=== PATIENT | male | born 1970 | race Caucasian/White ===

== ENCOUNTER 2022-08-11 17:42 | Outpatient (CLI) | payer OTHER, SELFPAY | END 2022-08-11 17:43 | disposition home or self-care (01) | LOC: LKVREF 17:44 | PROVIDERS: PCP Emergency Medicine; Visit Provider Emergency Medicine | DX: R04.0 Epistaxis (principal) | CPT/HCPCS: 85730 ==

== ENCOUNTER 2022-09-07 19:26 | Outpatient (CLI) | payer OTHER, SELFPAY ==
--- NOTE | 2022-09-15 12:45 | W.PM.SLEEP ---
Sleep Study Details Details Interpreting Provider: Deneen Date of Sleep Study: 09/07/22 Sleep Study Details: STUDY TYPE:? Home unattended ? BMI:? 26.3 ORDERING PROVIDER:Jose De Jesus Brothers INDICATION:? Concerns about sleep apnea ? SLEEP SUMMARY:? 411.5 minutes monitored RESPIRATORY SUMMARY:? AHI is 20.3, supine 31.3, left lateral 5.7, right lateral 1.1 Low oxygen 85 0.4% of study oxygen less than 90% Snoring 6.4% PERIODIC LIMB MOVEMENTS OF SLEEP:? Not recorded during home study CARDIAC:? Range 52-86, mean 59.8 IMPRESSION:? Moderate obstructive sleep apnea with significant supine position dependency RECOMMENDATION: Treatment options include CPAP AutoSet 4-17, positional therapy, dental appliance and/or airway expansion surgery.
== END 2022-09-07 19:27 | disposition home or self-care (01) ==
PROVIDERS: PCP Emergency Medicine; Visit Provider Otolaryngology
DX: G47.33 Obstructive sleep apnea (adult) (pediatric) (principal)
CPT/HCPCS: 95806

== ENCOUNTER 2022-09-28 07:56 | Outpatient (CLI) | payer OTHER, SELFPAY | END 2022-09-28 07:57 | disposition home or self-care (01) | LOC: NFLDREF 09-30 14:49 | PROVIDERS: PCP Emergency Medicine; Referring Provider Emergency Medicine; Visit Provider Emergency Medicine | DX: Z13.1 Encounter for screening for diabetes mellitus (principal); Z12.5 Encounter for screening for malignant neoplasm of prostate; Z13.6 Encounter for screening for cardiovascular disorders | CPT/HCPCS: 80048; 80061; 84153 ==

== ENCOUNTER 2022-10-23 12:54 | Outpatient (CLI) | payer OTHER, SELFPAY | END 2022-10-23 12:55 | disposition home or self-care (01) | LOC: NFLDREF 10-26 08:48 | PROVIDERS: PCP Emergency Medicine; Referring Provider Emergency Medicine; Visit Provider Emergency Medicine | DX: E83.52 Hypercalcemia (principal) | CPT/HCPCS: 80076; 82306; 82310; 83970; 84100 ==

== ENCOUNTER 2022-11-03 18:00 | Outpatient (CLI) | payer OTHER, SELFPAY | END 2022-11-03 18:01 | disposition home or self-care (01) | PROVIDERS: PCP Emergency Medicine; Visit Provider Emergency Medicine | DX: E21.3 Hyperparathyroidism, unspecified (principal) | CPT/HCPCS: 84443 ==

== ENCOUNTER 2022-11-19 15:11 | Outpatient (CLI) | payer OTHER, SELFPAY ==
--- NOTE | 2022-11-19 15:30 | CRLHL7_ITS ---
For Patients: As a result of the Century Cures Act, medical imaging exams and procedure reports are released immediately into your electronic medical record. You may view this report before your referring provider. If you have questions, please contact your health care provider. DXA BONE MINERAL DENSITY STUDY Current height (in): 70.0. Weight (lb): 190.0. Ethnicity: White. 1. Have you had a previous hip or vertebral fracture? No. 2. Have you had any fractures during your adult life which did not result from significant trauma (e.g., auto accident)? No. 3. Did either of your parents have a hip fracture? No. 4. Do you smoke? No. 5. Have you ever taken Glucocorticoids? No. 6. Do you have rheumatoid arthritis? No. 7. Do you have secondary osteoporosis? No. 8. Do you drink 3 or more alcoholic drinks per day? No. 9. Are you being treated for osteoporosis? No. 10. Have you ever taken any of the following medications: Actonel, Evista, Fosamax, Miacalcin, Reclast, Boniva, Forteo, HRT (i.e. estrogen/hormone therapy), Protelos, Prolia, Vitamin D, Calcium, other ??? please specify. ANSWER: No. 11. Do you have any of the following medical conditions: Anorexia or bulimia, asthma or emphysema, end stage renal disease, hyperparathyroidism, any seizure disorders, cancer, inflammatory bowel diseases, hysterectomy, other ??? please specify. ANSWER: Yes, hyperparathyroidism. 12. What was your maximum height (inches)? 70. 13. Do you perform weight bearing exercise regularly? No. 14. Do you regularly consume dairy products? Yes. 15. Do you drink caffeinated beverages? Yes. TECHNIQUE: Bone mineral density study was performed using the [employer]. FINDINGS: The results of the study expressed as bone mineral density (BMD) are as follows: Lumbar spine L1 to L4: BMD: 0.776 g/cm2. T-score: -2.9. Z-score: -2.5. Neck Left: BMD: 0.574 g/cm2. T-score: -2.6. Z-score: -1.9. Right: BMD: 0.569 g/cm2. T-score: -2.7. Z-score: -1.9. Total Left: BMD: 0.692 g/cm2. T-score: -2.3. Z-score: -1.9. Right: BMD: 0.621 g/cm2. T-score: -2.7. Z-score: -2.4. IMPRESSION: Osteoporosis. Arsenio Kaufman M.D. Diagnostic Radiologist [email or web address] MITZY/ramos / be/Dictated by: Arsenio Kaufman MD @ 11/20/2022 11:25:00 AM (Electronically Signed)
== END 2022-11-19 15:12 | disposition home or self-care (01) ==
LOC: RAD 15:12
PROVIDERS: PCP Emergency Medicine; Visit Provider Emergency Medicine
DX: E21.3 Hyperparathyroidism, unspecified (principal); M81.0 Age-related osteoporosis without current pathological fracture
CPT/HCPCS: 77080

== ENCOUNTER 2023-02-09 17:44 | Outpatient (CLI) | payer OTHER, SELFPAY | END 2023-02-09 17:45 | disposition home or self-care (01) | LOC: LKVREF 17:45 | PROVIDERS: PCP Emergency Medicine; Visit Provider Emergency Medicine | DX: Z01.818 Encounter for other preprocedural examination (principal) | CPT/HCPCS: 80048 ==

== ENCOUNTER 2023-05-11 17:45 | Outpatient (CLI) | payer OTHER, SELFPAY | END 2023-05-11 17:46 | disposition home or self-care (01) | PROVIDERS: PCP Emergency Medicine; Visit Provider Emergency Medicine | DX: R50.9 Fever, unspecified (principal); R53.83 Other fatigue | CPT/HCPCS: 80076; 84443; 86140; 87040 ==

== ENCOUNTER 2023-05-14 13:30 | Outpatient (CLI) | payer OTHER, SELFPAY | END 2023-05-14 13:31 | disposition home or self-care (01) | LOC: NFLDREF 05-19 12:11 | PROVIDERS: PCP Emergency Medicine; Referring Provider Emergency Medicine; Visit Provider Emergency Medicine | DX: R50.9 Fever, unspecified (principal); D64.9 Anemia, unspecified; D75.839 Thrombocytosis, unspecified | CPT/HCPCS: 82550; 82728; 85045; 86039; 86200; 86618; 86703; 87040; 87077; 87086; 87184 ==

== ENCOUNTER 2023-05-15 21:36 | Emergency (ER) | payer OTHER, SELFPAY ==
[2023-05-15 21:49] VITALS: BP 143/77; PULSE 75; RESP 16; TEMP 37.1; O2SAT 96; BMI 26.8
--- NOTE | 2023-05-15 22:00 | CT_ITS ---
Patient: JASPREET SUMNER Facility:?[facility] Patient ID:?[id number] Site Patient ID:?[id number]. Site :?[id number] Study:?CT-Chest/Abd/Pelvis with 92cc contrast-05/15/2023 10:55:51 PM Ordering Physician:Bettina Huston Final Report: Indication: Fever of unknown origin Technique: Postcontrast CT of the chest, abdomen, and pelvis with multiplanar reformats following 92 mL Isovue 370 IV. Comparison: Chest radiograph performed 05/11/2023 Findings: Chest: Lungs: No consolidation. No effusion. No pneumothorax. Mediastinum: No acute abnormality appreciated. Lymph nodes: No gross lymphadenopathy. Soft tissues: No acute abnormality appreciated. Bones: No acute abnormality appreciated. Abdomen and Pelvis: Hepatobiliary: No significant parenchymal abnormality is appreciated. Status post cholecystectomy. Spleen: Unremarkable. Pancreas: No acute abnormality appreciated. Adrenal glands: No acute abnormality appreciated. Kidneys: Indeterminate density right lower pole renal lesion measures 8 millimeters. No other significant parenchymal abnormality appreciated. No hydronephrosis. No calculi. Bowel: No obstruction. No focal perienteric or pericolonic stranding is appreciated. The appendix is visualized and appears unremarkable. Vascular: No acute abnormality appreciated. Lymph nodes: No gross lymphadenopathy. Peritoneum: No free air. No free fluid. : No acute abnormality appreciated. Soft tissues: No acute abnormality appreciated. Bones: No acute fracture. No lytic or blastic lesion. Impression: 1. No abnormal findings appreciated to account for patient`s reported symptoms. 2. Indeterminate density right renal lesion measuring 8 millimeters, no prior examination available for comparison. If no prior study is available for comparison, or if this is new or margin, a nonemergent outpatient renal protocol MRI or CT would be recommended for further evaluation. Please note that all CT scans at this facility use dose modulation, iterative reconstruction, and/or weight-based dosing when appropriate to reduce radiation dose to as low as reasonably achievable. Dictated by Moreno Hess MD @ 05/15/2023 11:23:27 PM Signed by:?Moreno Hess MD @05/15/2023 11:23:27 PM (Electronic Signature)
[2023-05-15 22:03] LABS: Basophils Absolute Auto 0.02 K/uL (0.00-0.30); Basophils Percent Auto 0.2 % (0.0-3.0); Eosinophils Absolute Auto 0.27 K/uL (0.00-0.50); Eosinophils Percent Auto 3.1 % (0.0-7.0); Hematocrit 38.1 % (37.0-53.0); Hemoglobin* 12.6 gm/dL (13.5-17.5); Immature Granulocytes Abs Auto 0.02 K/uL (0.00-0.30); Immature Granulocytes Pct Auto 0.2 %; Lymphocytes Percent Auto 22.7 % (20-44); Mean Corpuscular HGB Conc 33 gm/dL (32-36); Mean Corpuscular Hemoglobin 28 pg (26-34); Mean Corpuscular Volume 85 fL (80-100); Monocytes Percent Auto 7.9 % (0.0-11.0); Neutrophils Absolute Auto 5.82 K/uL (1.7-7.0); Neutrophils Percent Auto 65.9 % (42.0-72.0); Platelet Count* 529 K/uL (140-440); RDW Coefficient of Variation % 12.7 % (11.5-15.5); Red Blood Count 4.51 m/uL (4.30-5.90); White Blood Count* 8.83 K/uL (4.50-11.00)
[2023-05-15 22:04] LABS: Slide Review Reflex No
[2023-05-15 22:15] LABS: Chloride* 106 mmol/L (96-114); Potassium* 3.8 mmol/L (3.6-5.1); Sodium* 136 mmol/L (135-149)
[2023-05-15 22:17] LABS: Creatinine* 0.7 mg/dL (0.5-1.5); Est. Creatinine Clearance* 128.91; Estimated Glomerular Filt Rate 112 ml/min
[2023-05-15 22:18] LABS: Anion Gap 7 mEq/L (7-15); Carbon Dioxide* 23 mmol/L (20-32)
[2023-05-15 22:19] LABS: Blood Urea Nitrogen* 20 mg/dL (7-30); Calcium* 9.4 mg/dL (8.4-10.6); Glucose* 124 mg/dL (60-115)
[2023-05-15 22:21] LABS: C Reactive Protein* 1.4 mg/dL (0.5-1.0)
--- NOTE | 2023-05-15 22:51 | ED.GENADULT ---
HPI - General Adult General Chief complaint: Fever Stated complaint: fevers, night sweats Time Seen by Provider: 05/15/23 21:48 Source: patient Mode of arrival: ambulatory Limitations: no limitations History of Present Illness HPI narrative: 52-year-old male presenting to the ED for follow-up of positive blood cultures. Patient states that he has been having fevers and night sweats for approximately 3 weeks now. At the beginning of April he did go to [place] for a week and stated resort. Came back and felt fine. At the end of April he had a Reclast injection and ever since then he has been having nightly as night sweats and fevers during the day. Fevers get as high as 101 and do respond ibuprofen. He states that he has been feeling tired ever since a parathyroid surgery in January and this is unchanged. He states that he has lost approximately 7 lb since then. He states he did have a cough, however has been on doxycycline for approximately 5 days and the cough is better. Fevers, however, do continue. He denies worsening headaches, no chest pain or shortness of breath, no abdominal discomfort. He denies any difficulty with urination. No blood in his stool or urine. Denies any skin rashes. He has had extensive blood work done, nothing has been specific or pointing to a cause of his symptoms. He can do his activities of daily living, he eats throughout the day without vomiting or difficulty. He gets chills when the fever hits otherwise has no other acute concerning symptoms. Patient did have blood cultures drawn yesterday and 1 of the 2 cultures grew out Gram-negative rods. Related Data Home Medications Medication Instructions Recorded Confirmed sertraline 50 mg tablet 50 mg PO QDAY 11/03/22 02/09/23 cholecalciferol (vitamin D3) 50 50 mcg PO QDAY 05/11/23 05/11/23 mcg (2,000 unit) capsule Previous Rx's Medication Instructions Recorded albuterol sulfate 90 mcg/actuation 2 puff inhalation Q4H PRN 10/14/21 aerosol inhaler (Proventil HFA) shortness of breath or wheezing, cough #8.5 grams trazodone 50 mg tablet 50 - 100 mg (1 - 2 x 50 mg) PO QPM 05/07/23 PRN for insomnia #180 tabs doxycycline hyclate 100 mg capsule 100 mg PO BID 7 days #14 caps 05/13/23 Allergies Allergy/AdvReac Type Severity Reaction Status Date / Time No Known Drug Allergies Allergy Verified 05/11/23 17:29 Review of Systems Status of ROS: Reports: 10 or more systems reviewed and unremarkable except as noted in History and below [facility] Medical History Thrombocytosis ?D75.839 - Thrombocytosis, unspecified (ICD-10) Anemia ?D64.9 - Anemia, unspecified (ICD-10) Fever ?R50.9 - Fever, unspecified (ICD-10) Fatigue ?R53.83 - Other fatigue (ICD-10) Pre-op testing ?Z01.818 - Encounter for other preprocedural examination (ICD-10) Radial head fracture ?S52.123A - Displaced fracture of head of unspecified radius, initial encounter for closed fracture (ICD-10) Osteoporosis ?M81.0 - Age-related osteoporosis without current pathological fracture (ICD-10) Hyperparathyroidism ?E21.3 - Hyperparathyroidism, unspecified (ICD-10) Hypercalcemia ?E83.52 - Hypercalcemia (ICD-10) Insomnia ?G47.00 - Insomnia, unspecified (ICD-10) Screening for prostate cancer ?Z12.5 - Encounter for screening for malignant neoplasm of prostate (ICD-10) Screening for hyperlipidemia ?Z13.220 - Encounter for screening for lipoid disorders (ICD-10) Screening for diabetes mellitus ?Z13.1 - Encounter for screening for diabetes mellitus (ICD-10) KACEY (obstructive sleep apnea) ?G47.33 - Obstructive sleep apnea (adult) (pediatric) (ICD-10) Epistaxis ?R04.0 - Epistaxis (ICD-10) Seborrheic keratoses ?L82.1 - Other seborrheic keratosis (ICD-10) Anxiety ?F41.9 - Anxiety disorder, unspecified (ICD-10) Screening for colon cancer ?Z12.11 - Encounter for screening for malignant neoplasm of colon (ICD-10) Adopted ?Z02.82 - Encounter for adoption services (ICD-10) Surgical History Hx of cholecystectomy ?Z90.49 - Acquired absence of other specified parts of digestive tract (ICD-10) Family History Other Adopted Social History Smoking Status: Never smoker How often do you have a drink containing alcohol: never AUDIT-C Alcohol total score: 0 Non-prescribed substance use: denies use Little interest or pleasure in doing things: not at all Feeling down, depressed, or hopeless: not at all Exam Narrative: Exam Narrative: Well-nourished well-developed patient in no acute distress. Alert and oriented. Answers questions appropriately. Mood and affect are appropriate. Thoughts are goal oriented and rational. No tangential or magical thinking noted. Patient speaks in full sentences without needing to catch his breath. HEENT: Normocephalic atraumatic. Pupils are equally round reactive to light. Extraocular muscles are intact. Conjunctivae are moist without any icterus noted. Moist mucous membranes. Posterior pharynx is normal. Neck is soft without any lymphadenopathy or thyromegaly. No masses are appreciated. Cardiovascular: Heart is regular rate and rhythm S1 and S2 are present without any murmurs. Lungs: Clear to auscultation bilaterally no wheezes rhonchi or rales are appreciated. Patient takes deep breaths without any discomfort. Abdomen: Soft and nontender nondistended with normal bowel sounds. No guarding or rebound. No masses or organomegaly appreciated. Extremities: Bilateral lower extremities are without edema. Normal DP and PT pulses. Skin: Well perfused without any obvious rashes. Const: Vital Signs, click to edit/add: Vital Signs - 24 hr 05/15/23 21:49 Temperature 98.8 F Pulse Rate [Pulse Oximeter] 75 Respiratory Rate 16 Blood Pressure [Ri ght Upper Arm] 143/77 H Pulse Oximetry 96 Oxygen Delivery Me thod Room Air Course Course ED Course: CBC and chemistries were repeated today. These were unremarkable. CRP was 2.8 on 05/11/2023, today it was 1.4. Urinalysis was done on 05/10 and was unremarkable. [place] in HIV were also done at that time which were negative. LFTs were done at that time which were unremarkable. PAM, CCP IgG, and Lyme disease are all pending at this time. We did draw a QuantiFERON gold today as well. Given his continued symptoms we did proceed with a chest, abdomen and pelvis CT. Aside from the 8 mm indeterminate renal lesion, this was all negative. Vital Signs Vital signs: Initial Vital Signs Temperature 98.8 F 05/15/23 21:49 Temperature Source Temporal Artery Scan 05/15/23 21:49 Pulse Rate 75 05/15/23 21:49 Respiratory Rate 16 05/15/23 21:49 Blood Pressure 143/77 H 05/15/23 21:49 Blood Pressure Mean 99 05/15/23 21:49 Blood Pressure Position Sitting 05/15/23 21:49 Pulse Oximetry 96 05/15/23 21:49 Oxygen Delivery Method Room Air 05/15/23 21:49 Vital Signs Temperature 98.8 F 05/15/23 21:49 Pulse Rate 75 05/15/23 21:49 Respiratory Rate 16 05/15/23 21:49 Blood Pressure 143/77 H 05/15/23 21:49 Pulse Oximetry 96 05/15/23 21:49 Oxygen Delivery Method Room Air 05/15/23 21:49 Temperature 98.8 F 05/15/23 21:49 Pulse Rate 75 05/15/23 21:49 Respiratory Rate 16 05/15/23 21:49 Blood Pressure 143/77 H 05/15/23 21:49 Pulse Oximetry 96 05/15/23 21:49 Oxygen Delivery Method Room Air 05/15/23 21:49 Medications Administered Medications: Generic Name Dose Route Start Last Admin Trade Name Freq PRN Reason Stop Dose Admin Ceftriaxone Sodium 2 gm/ 100 mls @ 200 mls/hr 05/15/23 22:57 05/15/23 23:16 Sodium Chloride IVPB 05/15/23 22:58 200 mls/hr ONCE ONE Administration Medical Decision Making [facility] Narrative Medical decision making narrative: 52-year-old male with recurrent fevers, 1 positive blood culture with Gram-negative rods. Given that the patient is hemodynamically stable and does not appear ill or toxic on examination, We will treat the patient with Rocephin IV once daily for the next 5 days. Can finish doxycycline as well. Follow-up with primary care. Certainly return to the ER for any worsening or concerning symptoms. Repeat blood cultures and QuantiFERON gold pending at this time. Medical Records Medical records reviewed: Yes I reviewed the patient's medical records Lab Data Lab results reviewed: Yes I reviewed the patient's lab results Labs: Lab Results 05/15/23 Range/Units 21:55 WBC 8.83 (4.50-11.00) K/uL RBC 4.51 (4.30-5.90) m/uL Hgb 12.6 L (13.5-17.5) gm/dL Hct 38.1 (37.0-53.0) % MCV 85 (80-100) fL MCH 28 (26-34) pg MCHC 33 (32-36) gm/dL RDW Coeff of Daphney 12.7 (11.5-15.5) % Plt Count 529 H (140-440) K/uL Neut % (Auto) 65.9 (42.0-72.0) % Lymph % (Auto) 22.7 (20-44) % [place] % (Auto) 7.9 (0.0-11.0) % Eos % (Auto) 3.1 (0.0-7.0) % Baso % (Auto) 0.2 (0.0-3.0) % Neut # (Auto) 5.82 (1.7-7.0) K/uL Lymph # (Auto) 2.00 (0.90-2.90) K/uL [place] # (Auto) 0.70 (0.00-0.90) K/UL Eos # (Auto) 0.27 (0.00-0.50) K/uL Baso # (Auto) 0.02 (0.00-0.30) K/uL Abs Immat Gran (auto) 0.02 (0.00-0.30) K/uL Imm/Tot Granulo (auto) 0.2 % Sodium 136 (135-149) mmol/L Potassium 3.8 (3.6-5.1) mmol/L Chloride 106 (96-114) mmol/L Carbon Dioxide 23 (20-32) mmol/L Anion Gap 7 (7-15) mEq/L BUN 20 (7-30) mg/dL Creatinine 0.7 (0.5-1.5) mg/dL Estimated Creat Clear 128.91 Estimated GFR 112 ml/min Glucose 124 H (60-115) mg/dL Calcium 9.4 (8.4-10.6) mg/dL C-Reactive Protein 1.4 H (0.5-1.0) mg/dL Imaging Data CT Chest/Ab/Pelvis: Attestation: I have reviewed the pertinent imaging results. Radiologist's impression: Fever of unknown origin Technique: Postcontrast CT of the chest, abdomen, and pelvis with multiplanar reformats following 92 mL Isovue 370 IV. Comparison: Chest radiograph performed 05/11/2023 Findings: Chest: Lungs: No consolidation. No effusion. No pneumothorax. Mediastinum: No acute abnormality appreciated. Lymph nodes: No gross lymphadenopathy. Soft tissues: No acute abnormality appreciated. Bones: No acute abnormality appreciated. Abdomen and Pelvis: Hepatobiliary: No significant parenchymal abnormality is appreciated. Status post cholecystectomy. Spleen: Unremarkable. Pancreas: No acute abnormality appreciated. Adrenal glands: No acute abnormality appreciated. Kidneys: Indeterminate density right lower pole renal lesion measures 8 millimeters. No other significant parenchymal abnormality appreciated. No hydronephrosis. No calculi. Bowel: No obstruction. No focal perienteric or pericolonic stranding is appreciated. The appendix is visualized and appears unremarkable. Vascular: No acute abnormality appreciated. Lymph nodes: No gross lymphadenopathy. Peritoneum: No free air. No free fluid. : No acute abnormality appreciated. Soft tissues: No acute abnormality appreciated. Bones: No acute fracture. No lytic or blastic lesion. Impression: 1. No abnormal findings appreciated to account for patient`s reported symptoms. 2. Indeterminate density right renal lesion measuring 8 millimeters, no prior examination available for comparison. If no prior study is available for comparison, or if this is new or margin, a nonemergent outpatient renal protocol MRI or CT would be recommended for further evaluation. Discharge Plan Discharge Clinical Impression: Positive blood culture, Recurrent fever Patient Disposition: Home, Self-Care Condition: Stable Additional Instructions: You will receive antibiotics daily for the next 5 days. These will be injections that will be done in the ER. Please coordinate a time in the evening that you can come to get received this injection. The last day will be on 05/18. Prescriptions: No Action cholecalciferol (vitamin D3) 50 mcg (2,000 unit) capsule 50 mcg PO QDAY doxycycline hyclate 100 mg capsule 100 mg PO BID 7 Days Qty: 14 0RF albuterol sulfate [Proventil HFA] 90 mcg/actuation HFA aerosol inhaler 2 puff inhalation Q4H PRN (Reason: shortness of breath or wheezing, cough) Qty: 8.5 11RF sertraline 50 mg tablet 50 mg PO QDAY Patient Comments: put back on med list per dr anderson, rx accidently discontinued, trazodone 50 mg tablet 50 - 100 mg PO QPM PRN (Reason: for insomnia) Qty: 180 2RF Follow Up/Referrals: Sera Anderson MD [Primary Care Provider] - Stand Alone Forms: [employer] Info Instructions
[2023-05-15] MEDS: cefTRIAXone 2 GM in 0.9 % SODIUM CHLORIDE Mini-bag 100 ML IVPB (23:16)
== END 2023-05-15 23:55 | disposition home or self-care (01) ==
PROVIDERS: Emergency Provider Family Medicine; PCP Emergency Medicine
DX: R50.9 Fever, unspecified (principal); B96.89 Other specified bacterial agents as the cause of diseases classified elsewhere
CPT/HCPCS: 36415; 71260; 74177; 80048; 85025; 86140; 86480; 87040; 96365; 99284; 99285; J0696; Q9967

== ENCOUNTER 2023-05-19 18:57 | Outpatient (RCR) | payer OTHER, SELFPAY ==
[2023-05-16 20:31] VITALS: BP 134/73; PULSE 80; RESP 16; TEMP 37.3; O2SAT 98
[2023-05-16 20:32] VITALS: BP 134/73; PULSE 80; RESP 16; TEMP 37.3; O2SAT 98
[2023-05-16] MEDS: cefTRIAXone 2 GM VIAL IM (20:33)
[2023-05-16] MEDS: LIDOCAINE 1% 5 ml (pf) 5 ML VIAL IM (20:34)
[2023-05-17] MEDS: cefTRIAXone 2 GM VIAL IM (20:15)
[2023-05-17] MEDS: LIDOCAINE 1% 5 ml (pf) 5 ML VIAL IM (20:16)
[2023-05-17 20:17] VITALS: BP 156/72; PULSE 79; RESP 18; TEMP 37.2; O2SAT 96
[2023-05-18 19:56] VITALS: BP 144/80; PULSE 79; RESP 16; TEMP 37.3; O2SAT 97
[2023-05-18] MEDS: LIDOCAINE 1% 5 ml (pf) 5 ML VIAL IM (20:00)
[2023-05-18] MEDS: cefTRIAXone 2 GM VIAL IM (20:00)
--- NOTE | 2023-05-18 20:01 | PC.NURSE ---
patient here for outpatient ABO, hipolitonet has had 3 prior doses w/o reaction. education provided on symptoms to observe for at home. alert/ambulatory at DC. patient DC with
[2023-05-18 20:05] VITALS: BP 144/80; PULSE 83; RESP 16; TEMP 37.3; O2SAT 98
[2023-05-19 18:57] VITALS: BP 143/82; PULSE 92; RESP 14; TEMP 37.3; O2SAT 98
[2023-05-19] MEDS: cefTRIAXone 2 GM VIAL IM (19:08)
[2023-05-19 19:09] VITALS: BP 144/80; PULSE 83; RESP 16; TEMP 37.3; O2SAT 98
[2023-05-19] MEDS: LIDOCAINE 1% 5 ml (pf) 5 ML VIAL IM (19:09)
== END 2023-05-19 19:17 | disposition home or self-care (01) ==
PROVIDERS: PCP Emergency Medicine; Visit Provider Family Medicine
DX: R50.9 Fever, unspecified (principal)
CPT/HCPCS: 80307; J0696